=== PATIENT | female | born 2000 | race African-American/Black ===

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

== ENCOUNTER 2021-04-25 23:55 | Emergency (ER) | payer OTHER ==
[2021-04-26] MEDS ORDERED: Iopamidol-370 76% 500 ML 1 ML ONE (09:43)
== END 2021-04-26 01:50 | disposition home or self-care (01) ==
LOC: ERS 23:55
DX: F43.0 Acute stress reaction (principal); I10 Essential (primary) hypertension; Z86.16 Personal history of COVID-19
CPT/HCPCS: 71275; 93005

== ENCOUNTER 2021-06-29 03:39 | Emergency (ER) | payer OTHER | END 2021-06-29 04:00 | disposition home or self-care (01) | LOC: ERS 03:39 | DX: K08.89 Other specified disorders of teeth and supporting structures (principal) | CPT/HCPCS: 99281 ==

== ENCOUNTER 2021-08-24 22:58 | Emergency (ER) | payer OTHER ==
[2021-08-25] MEDS ORDERED: Proparacaine 0.5% Opth 15 ML BOT ONE (01:32)
[2021-08-25] MEDS ORDERED: Fluorescein Opthalmic Strip ONE (01:32)
== END 2021-08-25 02:19 | disposition home or self-care (01) ==
LOC: ERS 22:58
DX: H57.12 Ocular pain, left eye (principal)
CPT/HCPCS: 99283

== ENCOUNTER 2021-09-05 19:39 | Emergency (ER) | payer OTHER ==
[2021-09-05 20:20] LABS: Bacteria/HPF None Seen HPF (None Seen); Bilirubin Negative (Negative); Blood, Urine Trace (Negative); Clarity Clear (Clear); Glucose, Urine (Dipstick) Normal (Negative); Ketone, Urine 10 mg/dL (Negative); Leukocyte 25 Leu/uL (Negative); Mucous/LPF Rare LPF (<2+); Nitrite Negative (Negative); Pregnancy Test - Urine (BHCG) Negative (Negative); Pregu Control Background? CLEAR/WHITE (CLR/WHITE); Pregu Control Bar Appear? YES (CONTROL BAR); Protein, Urine (Dipstick) 30 mg/dL (Neg-Trace); Specific Gravity 1.028 (1.002-1.036); Specific Gravity, Urine 1.028 (1.002-1.036); Squamous Epithelial 0-3 HPF (0-3); WBC/HPF 0-3 HPF (0-3); pH, Urine 6.5 (5.0-9.0)
== END 2021-09-05 20:48 | disposition home or self-care (01) ==
LOC: ERS 19:39
DX: N30.00 Acute cystitis without hematuria (principal)
CPT/HCPCS: 81003; 81015; 81025; 99283

== ENCOUNTER 2022-03-18 17:15 | Emergency (ER) | payer OTHER ==
[2022-03-18] MEDS ORDERED: Meclizine HCl 25 MG TAB ONE (17:48)
== END 2022-03-18 19:00 | disposition home or self-care (01) ==
LOC: ERS 17:15
DX: H81.399 Other peripheral vertigo, unspecified ear (principal)
CPT/HCPCS: 93005

== ENCOUNTER 2022-05-26 19:42 | Emergency (ER) | payer OTHER | END 2022-05-26 21:59 | disposition home or self-care (01) | LOC: ERS 19:42 | DX: S93.402A Sprain of unspecified ligament of left ankle, initial encounter (principal); V43.02XA Car driver injured in collision with other type car in nontraffic accident, initial encounter ==

== ENCOUNTER 2023-05-29 11:03 | Outpatient (CLI) | payer OTHER | END 2023-05-29 11:04 | disposition home or self-care (01) | LOC: BICULT 11:03 | PROVIDERS: ATTEND Student in an Organized Health Care Education/Training Program | DX: N63.11 Unspecified lump in the right breast, upper outer quadrant (principal) ==

== ENCOUNTER 2023-07-12 15:16 | Emergency (ER) | payer OTHER ==
[2023-07-12] MEDS ORDERED: Ibuprofen 200 MG TAB ONE (17:36)
== END 2023-07-12 18:21 | disposition home or self-care (01) ==
LOC: ERS 15:16
DX: S61.210A Laceration without foreign body of right index finger without damage to nail, initial encounter (principal); W23.0XXA Caught, crushed, jammed, or pinched between moving objects, initial encounter

== ENCOUNTER 2023-08-23 12:08 | Emergency (ER) | payer OTHER ==
[2023-08-23 14:38] LABS: SARS-CoV-2 NAA Rapid Test Not Detected (NotDetected)
== END 2023-08-23 14:09 | disposition home or self-care (01) ==
LOC: ERS 12:08
DX: B34.9 Viral infection, unspecified (principal); J02.9 Acute pharyngitis, unspecified
CPT/HCPCS: 87081; 87430; 99283

== ENCOUNTER 2023-08-25 11:10 | Emergency (ER) | payer OTHER | END 2023-08-25 13:15 | disposition home or self-care (01) | LOC: ERS 11:10 | DX: Z02.79 Encounter for issue of other medical certificate (principal); R19.7 Diarrhea, unspecified | CPT/HCPCS: 99283 ==

== ENCOUNTER 2024-08-04 21:08 | Emergency (ER) | payer BC, SELFPAY | END 2024-08-04 21:38 | disposition home or self-care (01) | LOC: ERS 21:08 | DX: J11.1 Influenza due to unidentified influenza virus with other respiratory manifestations (principal) | CPT/HCPCS: 99283 ==

== ENCOUNTER 2025-04-25 12:03 | Emergency (ER) | payer SELFPAY ==
[2025-04-25 12:42] LABS: Pregnancy Test - Urine (BHCG) Negative (Negative); Pregu Control Background? CLEAR/WHITE (CLR/WHITE); Pregu Control Bar Appear? YES (CONTROL BAR)
[2025-04-25 12:49] LABS: Bacteria/HPF None Seen HPF (None Seen); CAUTI Indications for Culture Acute Hematuria; Glucose, Urine (Dipstick) Normal (Negative); Leukocyte 250 Leu/uL (Negative); Protein, Urine (Dipstick) 50 mg/dL (Neg-Trace); Specific Gravity, Urine 1.031 (1.002-1.036)
[2025-04-25 12:51] LABS: Urine Culture Reflex No No
[2025-04-25] MEDS ORDERED: Cephalexin 250 MG CAP ONE (13:17)
== END 2025-04-25 13:30 | disposition home or self-care (01) ==
LOC: ERS 12:03
DX: N39.0 Urinary tract infection, site not specified (principal)
CPT/HCPCS: 81001; 81025; 99283

== ENCOUNTER 2025-06-11 07:31 | Emergency (ER) | payer SELFPAY ==
[2025-06-11] MEDS ORDERED: Ondansetron PF 4 MG/2 ML Vial ONE (08:10)
[2025-06-11] MEDS ORDERED: Ketorolac Tromethamine 30 MG (1 mL) VIAL ONE (08:10)
[2025-06-11 08:45] LABS: #Basophils Less than 0.03 10x3/uL (0.0-0.2); #Eosinophils 0.26 10x3/uL (0.0-0.7); #Monocytes 0.35 10x3/uL (0.11-0.59); #Neutrophils 3.04 10x3/uL (1.40-6.50); %Basophils 0.5 % (0.0-1.0); %Eosinophils 5.9 % (0.0-10.0); %Lymphocytes 16.9 % (21.0-51.0); %Monocytes 7.9 % (0.0-10.0); %Neutrophils 68.6 % (42.0-75.0); Hematocrit 34.4 % (36.0-47.0); Hemoglobin 9.9 g/dL (12.0-16.0); Mean Corpuscular Hemoglobin 21.7 pg (27.0-31.0); Mean Corpuscular Volume 75.4 fL (78.0-98.0); Platelet Count 282 10x3/uL (130-400); Red Blood Cell (RBC) Count 4.56 mill/uL (4.20-5.40); White Blood Cell (WBC) Count 4.43 10x3/uL (4.8-10.8)
[2025-06-11 08:53] LABS: ALT (SGPT) 7 U/L (Less than 34); AST (SGOT) 21 U/L (11-34); Albumin 4.4 g/dL (3.1-4.5); Alkaline Phosphatase 60 U/L (40-110); Anion Gap 13 mmol/L (10-20); BUN (Urea Nitrogen) 8 mg/dL (7.0-18.7); Bilirubin, Total 0.8 mg/dL (0.3-1.2); Calc. Creatinine Clearance 0 mL/min (70-130); Calcium 9.9 mg/dL (7.8-10.44); Carbon Dioxide 23 mmol/L (22-29); Chloride 103 mmol/L (98-107); Globulin 4.0 g/dL (2.4-3.5); Glucose 91 mg/dL (70-105); Lipase 13 U/L (8-78); Potassium 3.6 mmol/L (3.5-5.1); Sodium 135 mmol/L (136-145)
[2025-06-11 09:08] LABS: Anisocytosis SLIGHT = 6-15 cells HPF (0-5); Giant Platelets 1.0 % (0-5); Macrocytosis SLIGHT = 6-15 cells HPF (0-5); Microcytosis SLIGHT = 6-15 cells HPF (0-5); Platelet Adequacy Comment Platelets Normal; Polychromasia SLIGHT = 2-3 cells HPF (0-2); Smudge Cells 7.0 %
[2025-06-11 09:09] LABS: CAUTI Indications for Culture Pelvic or flank pain; Glucose, Urine (Dipstick) Normal (Negative); Leukocyte 250 Leu/uL (Negative); Protein, Urine (Dipstick) 10 mg/dL (Neg-Trace); RBC/HPF None Seen HPF (0-3); Specific Gravity, Urine 1.025 (1.002-1.036)
[2025-06-11 09:10] LABS: Pregnancy Test - Urine (BHCG) Negative (Negative); Pregu Control Background? CLEAR/WHITE (CLR/WHITE); Pregu Control Bar Appear? YES (CONTROL BAR)
[2025-06-11 09:13] LABS: Bacteria/HPF 1+ HPF (None Seen); Urine Culture Reflex No No
[2025-06-11] MEDS ORDERED: Cephalexin 250 MG CAP ONE (10:28)
== END 2025-06-11 10:45 | disposition home or self-care (01) ==
LOC: ERS 07:31
DX: N39.0 Urinary tract infection, site not specified (principal); K59.00 Constipation, unspecified
CPT/HCPCS: 74176; 80053; 81001; 81025; 83690; 85025; 96361; 96374; 96375; J1885; J2405